=== PATIENT | female | born 1950 | race Caucasian/White ===

== ENCOUNTER → 2016-09-15 | Outpatient (CLI) | payer OTHER ==
[~2016-09-15] MED LIST: ACTOS PO; AMARYL PO; AMBIEN PO; AMLODIPINE BESY10 MG PO; ATENOLOL PO; ATENOLOL25 MG PO; ATENOLOL50 MG PO; AVANDIA; AVAPRO; CELEXA PO; CIPROFLOXACIN500 M1 PO; CITALOPRAM HBR40 MG PO; CLINDAMYCIN HC300 MG PO; DEMEROL PO; DEMEROL50 MG PO; DEPAKOTE (UD)250 M1 PO; DEPAKOTE (UD)250 MG PO; DEPAKOTE ER; DEPAKOTE ER250 MG PO; DEPAKOTE PO; DESYREL100 MG PO; DIAZEPAM; DIAZEPAM10 MG PO; DIOVAN PO; DITROPAN PO; DIVALPROEX SOD250 M1 PO; DOCUPRENE100 MG PO; FLEXERIL10 M1 PO; FOSAMAX PO; FOSAMAX70 MG PO; GLUCOTROL PO; HCTZ PO; HYDRALAZINE HCL25 MG PO; IBUPROFEN800 MG PO; IMITREX; IMITREX PO; JANUVIA PO; K-DUR20 ME1 PO; KOMBIGLYZE XR1 EAC2 PO; LANTUS SOL100 UNIT/1 SUBQ; LANTUS SOLOSTAR3 ML; LANTUS SOLOSTAR3 ML SQ; LANTUS SOLOSTAR3 ML SUBQ; LASIX20 MG PO; LAXATIVE25 M1 PO; LEVOTHROID75 MCG PO; LEVOTHYROXINE50 MCG PO; LEVOTHYROXINE75 MC1 PO; LEVOTHYROXINE75 MCG PO; LEXAPRO5 MG PO; LIPITOR; LISINOPRIL-HCTZ1 T15 PO; LISINOPRIL20 MG PO; LO-DOSE ASPIRIN81 M1 PO; LOMOTIL TABLET1 TAB PO; LOPRESSOR; LORCET HD CAPSU1 CA1 PO; LUNESTA PO; METFORMIN; METFORMIN HCL500 M1 PO; METFORMIN PO; MINIPRESS1 MG PO; MIRAPEX PO; MIRAPEX1 MG PO; MOBIC15 MG PO; MORPHINE PUMP; NATURE MADE D3; NOVOLOG FL100 UNIT/1 SUBQ; NOVOLOG100 U/ML; NOVOLOG100 U/ML SUBQ; ONDANSETRON HCL4 MG PO; OXYBUTYNIN CHLO15 MG PO; PAIN PUMP; PAIN PUMP DILAUDID; PERCOCET 10/3251 TAB PO; PERCOCET 5-3251 TAB PO; PERCOCET10 PO; PERCOCET5/325 PO; PERCODAN TABLET1 TA1 PO; PHENERGAN PO; PHENERGAN SUPP25 MG PR; PHENERGAN25 M1 PO; PHENERGAN25 MG PO; PIOGLITAZONE45 MG PO; PRINIVIL40 MG PO; PROMETHAZINE HC25 MG PO; RECLAST 55 MG/100 M; RECLAST 55 MG/100 M IV; REGLAN5 MG PO; RELPAX40 MG PO; ROXICODONE5 MG PO; SIMVASTATIN20 MG PO; SIMVASTATIN40 MG PO; SUMATRIPTAN SU100 MG PO; TENORMIN50 MG PO; TOPAMAX PO; TOPROL XL; TRAZODONE HCL100 MG PO; VALIUM10 MG PO; VIT E PO; VITAMIN D1000 UNI1 PO; VITAMIN D1000 UNIT PO; VITAMIN D2000 UNI1 PO; VITAMIN D2000 UNIT PO; VITAMIN D31000 UNIT PO; VITAMIN D50000 UNIT PO; WELCHOL625 MG PO; XARELTO15 MG PO; XARELTO20 MG PO; ZESTORETIC 20/21 TAB PO; ZESTRIL40 MG PO; ZOCOR PO; [UNRECOGNIZED DRUG - OTHER]; [UNRECOGNIZED DRUG - REMARK]
== END | disposition home or self-care (01) ==
LOC: CSSDAY 09:17
DX: M81.0 Age-related osteoporosis without current pathological fracture (principal)
CPT/HCPCS: 96365; J3489

== ENCOUNTER → 2016-12-13 | Day surgery (SDC) | payer OTHER ==
--- NOTE | ~2016-12-13 | OR ---
Unit #: [id number] #: [id number] Patient: JESSIE WILSON [id number] [address] [place], [place] [address] [id number] MR#: [id number] NAME: JESSIE WILSON. ROOM: Date of Procedure: 12/13/2016 Admission Date: 12/13/2016 Surgeon: Ollie Fitzpatrick M.D. : 1950 Attending Physician: Ollie Fitzpatrick M.D. Primary Care Physician: Justin Logan D.O. OPERATIVE REPORT PREOPERATIVE DIAGNOSES The patient presented for colorectal cancer surveillance. She has personal history of colonic polyps. PROCEDURES PERFORMED Colonoscopy and polypectomy. POSTOPERATIVE DIAGNOSES 1. A single sessile polyp about a centimeter in size in the distal transverse colon. The latter was removed using snare cautery polypectomy. 2. Rest of the examination up to cecum and terminal ileum was normal. The quality of the prep was good. No additional polyps were noted. RECOMMENDATIONS 1. Follow up the results of polyp histology. 2. Repeat colonoscopy in 5 years. SEDATION USED MAC. DESCRIPTION OF PROCEDURE Following detailed explanation of potential risks and complications of a colonoscopy, namely perforation, bleeding, and complications related to sedation, the patient was brought to GI lab and laid in the left lateral decubitus position. A digital rectal examination was performed, which was normal. Lubricated tip of the Olympus video colonoscope was inserted through the anus and advanced under direct vision. The scope was advanced past rectosigmoid into descending colon. No diverticula were noted in this area. The scope tip was then navigated all the way up to cecum with visualization of the ileocecal valve and the appendiceal orifice. Preparation was good with good visualization and photodocumentation was obtained. Last several inches of terminal ileum were also visualized after intubation of the ileocecal valve and appeared normal. Successive segments of colonic mucosa were examined upon withdrawal and appeared unremarkable except for the polyp noted earlier. The transverse colon polyps were removed using snare cautery polypectomy. It was retrieved and sent for histology. Excellent hemostasis was achieved and photodocumentation was obtained. No additional polyps were noted. The patient did not have any diverticulosis nor any hemorrhoids. The scope was then withdrawn and the patient returned to the recovery area. She tolerated the procedure without any postprocedure complications. Unit #: [id number] #: [id number] Patient: JESSIE WILSON Dictated by... Supa Patino/neha TD: 12/13/2016 11:06 JOB #: [id number] CC: Justin Logan D.O. OPERATIVE REPORT Page 1 of 1 X Ollie Fitzpatrick MD PROCEDURE OPERATIVE NOTE
== END | disposition home or self-care (01) ==
LOC: COPS 07:06
DX: Z12.11 Encounter for screening for malignant neoplasm of colon (principal); D12.3 Benign neoplasm of transverse colon; E03.9 Hypothyroidism, unspecified; K21.9 Gastro-esophageal reflux disease without esophagitis; G43.909 Migraine, unspecified, not intractable, without status migrainosus; Z86.711 Personal history of pulmonary embolism; Z86.010 Personal history of colon polyps; Z88.0 Allergy status to penicillin; Z91.041 Radiographic dye allergy status; Z79.4 Long term (current) use of insulin; Z79.899 Other long term (current) drug therapy; Z79.82 Long term (current) use of aspirin; Z90.710 Acquired absence of both cervix and uterus; Z98.51 Tubal ligation status; Z98.41 Cataract extraction status, right eye; Z98.42 Cataract extraction status, left eye; Z98.890 Other specified postprocedural states
CPT/HCPCS: 82947; 88305; J2250